=== PATIENT | male | born 1970 ===

== ENCOUNTER 2025-01-25 06:15 | Day surgery (SDC) | payer OTHER, SELFPAY | END 2025-01-25 09:22 | disposition home or self-care (01) | LOC: GI 06:15 | PROVIDERS: ATTENDING PHYSICIAN Internal Medicine Gastroenterology | DX: Z12.11 Encounter for screening for malignant neoplasm of colon (principal); R19.5 Other fecal abnormalities; K57.30 Diverticulosis of large intestine without perforation or abscess without bleeding; K64.8 Other hemorrhoids; D12.8 Benign neoplasm of rectum | CPT/HCPCS: 45385; 88305 ==